=== PATIENT | male | born 1950 | race Caucasian/White ===

== ENCOUNTER → 2019-10-15 07:59 | Outpatient (CLI) | payer MEDICARE, SELFPAY ==
--- NOTE | 2019-10-15 08:25 | RAD_ITS ---
STUDY: X-RAY - ESOPHAGUS (BARIUM SWALLOW) WITH FLUOROSCOPY REASON FOR EXAM: Male, 69 years old. CHOKING ON SOLID FOOD 4X IN 3 YEARS TECHNIQUE: 17 view(s) of the esophagus were obtained following swallowing of barium. FLUOROSCOPY TIME (if supplied): (0:33) minutes/seconds COMPARISON: None. FINDINGS: There is no demonstrated esophageal foreign body. There is no demonstrated stricture or mucosal abnormality. Normal gastroesophageal junction, without a demonstrated hiatal hernia. The patient ingested a 12 mm tablet of barium without any difficulty. There is atherosclerotic calcification of the aortic arch with tortuosity of the descending aorta. Normal visualized pulmonary parenchyma. There are diffuse degenerative changes of the visualized thoracic spine. RAD/Esophagus Single Contrast IMPRESSION: Normal plain film x-ray examination (barium swallow) of the esophagus. Electronically Signed: Ant Toscano, at 14:09 EDT , Service support ,
== END ==
PROVIDERS: PCP Student in an Organized Health Care Education/Training Program; Referring Provider Student in an Organized Health Care Education/Training Program; Visit Provider Student in an Organized Health Care Education/Training Program
DX: R13.10 Dysphagia, unspecified (principal)
CPT/HCPCS: 74220

== ENCOUNTER 2021-01-14 06:25 | Day surgery (SDC) | payer MEDICARE, SELFPAY ==
--- NOTE | 2021-01-12 15:20 | HP.PCM_ITS ---
History and Physical Date of Admission: 01/14/21 HISTORY AND PHYSICAL ? Tom Mathews 1950 ? REFERRING PHYSICIAN: Nate Kenny IV, MD ? CHIEF COMPLAINT: Consult ? HPI: The patient is a 70 year old male referred for endoscopy. Tom reports a history of diarrhea x several years, worsening over the last couple of months. He states he will have loose stools within a short time of eating anything, even toast. Notes associated cramping and a 10 lb unintentional weight loss over the last few months. He is s/p cholecystectomy and appendectomy. He has tried a probiotic without symptom improvement. Patient denies any change weight changes, blood in stools, black tarry stools or abdominal pain. Denies family history of colon issues, but does note his brother had pancreatic cancer. The patient notes no upper GI complaints. ? Tom has undergone prior endoscopy, he believes this was at least 10 years a go. Records obtained show colonoscopy performed at [facility] 03/01/[address] Pickett with findings of moderate diverticulosis. ? Patient's past medical history is significant for chronic kidney disease, hypertension, hyperlipidemia, IBS, gout, diabetes mellitus. Patient notes he had a recent hospital visit at [facility] after he was found to have high potassium on routine labs. He states he has had nephrology follow-up and repeat labs since that time. Office notes from Dr. Kenny are reviewed. ? Denies chest pain or shortness of breath. Denies problems with sedation in the past. ? ? PAST MEDICAL HISTORY PAST MEDICAL HISTORY Diagnosis Date ? CKD (chronic kidney disease) stage 3, GFR 30-59 ml/min ([facility]) ? ? Diabetes mellitus (HCC) ? ? GERD (gastroesophageal reflux disease) ? ? Glaucoma ? ? Gout ? ? High triglycerides ? ? HLD (hyperlipidemia) ? ? HTN (hypertension) ? ? Hypothyroid ? ? IBS (irritable bowel syndrome) ? ? Memory change ? ? ? PAST SURGICAL HISTORY PAST SURGICAL HISTORY Procedure Laterality Date ? APPENDECTOMY HX ? 10/30/2018 ? CHOLECYSTECTOMY ? ? ? HERNIA REPAIR HX ? 07/03/2020 ? Umbilical ? KNEE LEFT OP SURGERY ? ? ? both knees ? SHOULDER SURGERY HX ? CURRENT MEDICATIONS Current Outpatient Medications Medication Sig ? pioglitazone (ACTOS) 45 mg tablet Take 45 mg by mouth once daily. ? glimepiride (AMARYL ORAL) Take 10 mg by mouth as needed. ? chlorthalidone (HYGROTON) 25 mg tablet Take 25 mg by mouth once daily. ? levothyroxine (SYNTHROID) 88 mcg tablet Take 88 mcg by mouth daily before breakfast. ? desloratadine (CLARINEX) 5 mg tablet Take 5 mg by mouth once daily. ? doxazosin (CARDURA) 2 mg tablet Take 2 mg by mouth daily at bedtime. ? pantoprazole DR (PROTONIX) 40 mg tablet Take 40 mg by mouth once daily. ? ergocalciferol 50,000 unit capsule (VITAMIN D2, DRISDOL) Take 50,000 Units by mouth one time a week. ? ezetimibe (ZETIA) 10 mg tablet Take 10 mg by mouth once daily. ? aspirin, enteric coated (ASPIRIN, ENTERIC COATED) 81 mg EC tablet Take 81 mg by mouth once daily. ? cholecalciferol, vitamin D3, (VITAMIN D3 ORAL) Take 5,000 Units by mouth once daily. ? Ascorbic Acid-Collagen (COLLAGEN PLUS VITAMIN C) 125-740 mg cap Take by mouth once daily. ? ferrous sulfate EC 324 mg (65 mg iron) TbEC Take 324 mg by mouth daily with breakfast. ? calcium carb/mag oxide/C/beta (CALCIUM COMPLETE ORAL) Take 1,300 mg by mouth once daily. ? ubidecarenone (COENZYME Q10) 100 mg tab Take 200 mg by mouth once daily. ? MAGNESIUM GLYCINATE ORAL Take 665 mg by mouth once daily. ? icosapent ethyl (VASCEPA) capsule Take 2 g by mouth four times daily. ? evolocumab (REPATHA SYRINGE) 140 mg/mL Inject subcutaneously every 2 weeks. ? insulin NPH human isophane (NOVOLIN N SUBCUTANEOUS) Inject 42 Units subcutaneously once daily. NOVOLIN 12 units at lunch 42 units at dinner ? insulin glargine,hum.rec.anlog (TOUO SOLOSTAR U-300 INSULIN SUBCUTANEOUS) Inject 44 Units subcutaneously once daily. ? escitalopram oxalate (LEXAPRO) 10 mg tablet Take 10 mg by mouth once daily. ? allopurinol 100 mg tablet Take 200 mg by mouth once daily. ? bisoprolol (ZEBETA) 10 mg tablet Take 10 mg by mouth once daily. ? latanaprost (XALATAN) 0.005 % ophthalmic solution Use 1 Drop in both eyes daily at bedtime. ? Insulin [place], Disposable, (BD ULTRAFINE III MINI PEN) 31 x 3/16 Ndle USE WITH INSULIN PENS PENS 1TIMES DAILY ? Valsartan-Hydrochlorothiazide (DIOVAN HCT) 320-12.5 mg per tablet Take 1 tablet by mouth once daily. (Patient not taking: Reported on 12/02/2020 ) ? hydrochlorothiazide 25 mg tablet Take 25 mg by mouth once daily. (Patient not taking: Reported on 12/02/2020 ) ? Omeprazole (PRILOSEC) 40 mg capsule Take 40 mg by mouth once daily. (Patient not taking: Reported on 12/02/2020 ) ? fenofibrate nanocrystallized (TRICOR) 145 mg tablet Take 145 mg by mouth once daily. (Patient not taking: Reported on 12/02/2020 ) ? glipiZIDE 5 mg tablet Take 5 mg by mouth once daily. Takes 20 mg daily. (Patient not taking: Reported on 12/02/2020 ) ? omega-3 acid ethyl esters (LOVAZA) 1 gram capsule Take 1 g by mouth once daily. (Patient not taking: Reported on 12/02/2020 ) ? CIPROFLOXACIN HCL (CIPRO ORAL) Take by mouth twice daily. (Patient not taking: Reported on 12/02/2020 ) ? rosuvastatin (CRESTOR) 5 mg tablet Take 1 tablet by mouth daily at bedtime. (Patient not taking: Reported on 12/02/2020 ) ? insulin glargine (LANTUS SOLOSTAR) 100 unit/mL (3 mL) InPn Inject 10 Units subcutaneously daily at bedtime. (Patient not taking: Reported on 12/02/2020 ) ? No current facility-administered medications for this visit. ? ? ALLERGIES: Hydrocodone-Acetaminophen, Percocet [Oxycodone-Acetaminophen], and Utfdsfm-Lhz-Jfw Reductase Inhibitors ? PERSONAL HISTORY: SOCIAL HISTORY Social History ? Tobacco Use ? Smoking status: Former Smoker ? ? Types: Pipe, Cigars ? Smokeless tobacco: Never Used ? Tobacco comment: Quit 1979 Substance Use Topics ? Alcohol use: Not Currently ? Drug use: Never ? FAMILY HISTORY: FAMILY HISTORY FAMILY HISTORY Problem Relation Age of Onset ? Breast Cancer Mother ? ? ? Stroke Father ? ? at age 76 ? other (aortic aneurysm) Sister ? ? Prostate Cancer Brother ? ? other (pancreatic cancer) Brother ? ? Prostate Cancer Brother ? ? alzheimers ? ? REVIEW OF SYMPTOMS: The review of systems data was entered by the nurse and reviewed by me ? Nursing Notes: Gail Cheema RN 12/02/2020 10:06 AM Signed REVIEW OF SYSTEMS: General: The patient denies fatigue, denies weight loss, denies weight gain, denies feeling hot, and denies feelings of cold. Eyes: The patient notes glaucoma, denies eye injury/surgery, does not wear glasses or contacts. Ear/Nose/Throat: The patient notes allergies, denies hayfever, denies ear infections, and denies bloody noses. Cardiovascular: The patient denies chest pain, denies heart disease, notes high blood pressure,denies cardiac stent, denies prior heart attack, notes irregular heart beat, notes high cholesterol, denies poor circulation, denies heart failure, other cardiac issues, denies claudication, denies cold feet, denies peripheral arterial stent. Respiratory: The patient denies tuberculosis, denies pneumonia, denies frequent cough, denies pulmonary embolism, denies shortness of breath, and denies coughing up blood. Gastrointestinal: The patient denies difficulty swallowing, notes acid reflux, denies ulcers, denies vomiting, denies jaundice/hepatitis, denies gallb ladder problems, denies black or tarry stools, notes hemorrhoids, denies bleeding from rectum, denies diverticulitis, denies constipation, notes diarrhea, denies loss of stool control, and denies hernias. Kidney/Bladder: The patient denies kidney stones, denies urine infections, and denies bloody urine. Skin: The patient denies a history of skin cancer, denies bleeding/changing moles, and denies a history of skin rash. Neurologic: The patient denies a history of epilepsy/convulsions, denies headaches, denies head/spinal injuries, and denies stroke/TIA. Psychiatric: The patient denies psychiatric medications, notes depression, and denies voices, denies substance abuse. Endocrine: The patient notes thyroid disorders, notes diabetes, and denies hormonal problems. Hematologic: The patient denies a history of bruising, denies bleeding, and denies anemia, denies blood clots. Infections: The patient denies a history of measles and mumps, denies rheumatic fever, and denies sexually transmitted diseases. Musculoskeletal: The patient denies back pain/injury, notes back problems, denies sciatica, denies knee/foot trouble, notes arthritis, or notes gout. ? ? When was patient's last Mammogram screening? N/A ? Last Colonoscopy: 2009? ? Gail Cheema RN I have confirmed and edited as necessary, the PFSH and ROS obtained by others. ? PHYSICAL EXAMINATION: ? General: The patient is 70 year old male, well nourished, well hydrated in no acute distress. The patient is oriented to time, place, and person. ? VITALS: Blood pressure 150/64, pulse (!) 52, temperature 36 ?C (96.8 ?F), temperature source Temporal Artery, weight 111.6 kg (246 lb), SpO2 97 %. Body mass index is 35.74 kg/m?. ? HEENT: Normal cephalic, ataumatic, pupils are equally round, sclera are anicteric, mucous membranes are moist, oropharynx is clear. Neck has no masses, asymmetry or lymphadenopathy. ? Respiratory: Clear to auscultation and percussion. Normal respiratory excursion and pattern. ? Cardiac: Examination is regular rate and rhythm. Normal S1/S2 ? Abdominal exam: Soft, nontender, with no palpable masses. No hepatospl enomegaly. No palpable hernias. ? Extremities: no clubbing, cyanosis or edema. No adenopathy. ? LABORATORY VALUES: As Noted ? RADIOLOGIC STUDIES: As Noted ? ? Assessment IMPRESSION: diarrhea, change in bowel habits. Chronic kidney disease and history of recent hospital visit for abnormal labs-recommend Monitored Anesthetic Care ? PLAN: I have reviewed my findings with the surgeon. Will plan for lower endoscopy-patient was offered EGD at same setting but declined. We discussed the risks and benefits of the planned endoscopy. I have informed the patient that complications can occur including failure to complete the endoscopy and perforation. The patient had the opportunity to ask questions concerning the planned endoscopy. My staff has also explained the procedure to the patient in understandable terms and has given the patient printed material concerning the procedure. The patient freely consents to surgery. ? The patient was offered a surgery/procedure at a [facility]. I have counseled the patient regarding the risk of exposure to and/or potential harm posed by the COVID-19 virus with having a surgery/procedure at this time versus the risk of? delaying the surgery/procedure. It is not possible to know either the risk of delaying the surgery or procedure or chance of getting an infection with perfect accuracy, but a joint decision was made between the patient and myself?to proceed at this time with endoscopy. ? I plan to use Miralax/dulcolax bowel preparation. Reviewed importance of good hydration prior to, during and following bowel prep ? Patient instructed to contact PCP for instructions regarding diabetic medication, which may require adjustment during bowel preparation and/or day of procedure ? ? The patient has medical comorbidities for which we will plan for the procedure to be performed under Monitored Anesthetic Care. ? ? ? Diagnoses: (R19.7) Diarrhea, unspecified type (primary encounter diagnosis) (R19.4) Change in bowel habits (R10.9) Abdominal cramping ? Jacinda Powers PA-C v
[2021-01-14] VITALS (7 sets, daily range): BP systolic 116–141; BP diastolic 55–67; PULSE 46–55; RESP 16–18; TEMP 36.1–36.2; O2SAT 95–99; BMI 43.7
[2021-01-14] MEDS: Lactated Ringers 1,000 ML 125 ML IV (06:56)
[2021-01-14 07:20] LABS: Bedside Glucose 97 mg/dL (70-110)
--- NOTE | 2021-01-14 07:30 | COLBX_PTH ---
PATIENT: RAMIRO CHAUDHARY LOC: EN U#:[id number] AGE/SX: 70/M ROOM: RE01/14/[address]: Dr. Em Doherty MD : 1950 BED: DIS: 01/14/2021 SPEC #: [id number] RECD: 01/14/21 09:41 STATUS: SAUL REJo Ann #: [id number] MARIAH: 01/14/21 07:[address]: Em Doherty DEPT: SURGICAL PATHOLOGY RECD BY: Aisha Guidry ENTERED: 01/14/21 10:46 SP TYPE: COLON BX MEENAKSHI DR: Dr. Nate Kenny DO Tissues: COLON BIOPSY Procedures: Trichrome (control) Special Stain Group II Surgery Specimen Level IV HEADER OPERATION: Colonoscopy (MAC) PRE-OP DIAGNOSIS: Diarrhea, change in bowel habits TISSUE SUBMITTED: Random colonic biopsy MICROSCOPIC DIAGNOSIS Colon, random biopsy: Consistent with collagenous colitis. See comment. AM:shavon 01/15/2021 COMMENT Trichrome stain with matched control was used in the evaluation of this case. MICROSCOPIC DESCRIPTION Slides are reviewed. GROSS DESCRIPTION Received in fixative is one container labeled with the patient's name and designated random colon biopsy. The specimen consists of multiple irregular fragments of light garcia soft tissue that in aggregate measure 1.5 x 0.6 x 0.1 cm. The specimen is totally submitted in one cassette. / SJ:shavon 01/14/21 TC:3 CPT: 87546, 32813
--- NOTE | 2021-01-14 12:55 | OP.COLON_ITS ---
Patient Name: Tom Mathews Procedure Date: 01/14/2021 7:03 AM Date of : 1950 Age: 70 Procedure: Colonoscopy Indications: Change in bowel habits, Clinically significant diarrhea of unexplained origin Providers: Em Doherty MD Medicines: See the Anesthesia note for documentation of the administered medications Patient Profile: Refer to note in patient chart for documentation of history and physical. Last Colonoscopy: more than 10 years ago. Complications: No immediate complications. Estimated blood loss: Minimal. Procedure: Pre-Anesthesia Assessment: - see anesthesia note After I obtained informed consent, the scope was passed under direct vision. Throughout the procedure, the patient's blood pressure, pulse, and oxygen saturations were monitored continuously. The pediatric colonoscope was introduced through the anus and advanced to the cecum, identified by the appendiceal orifice, IC valve and transillumination. The colonoscopy was performed without difficulty. The patient tolerated the procedure well. The quality of the bowel preparation was adequate. Scope In: 7:32:45 AM Scope Withdrawal Time 0 hours 8 minutes 9 seconds Scope Out: 7:52:39 AM Total Procedure Duration Time 0 hours 19 minutes 54 seconds Findings: The perianal and digital rectal examinations were normal. A few small and large-mouthed diverticula were found in the entire colon. Biopsies for histology were taken with a cold forceps from the entire colon for evaluation of microscopic colitis. Non-bleeding internal external and internal hemorrhoids were found. Impression: - Diverticulosis in the entire examined colon. - Non-bleeding internal external and internal hemorrhoids. - Biopsies were taken with a cold forceps from the entire colon for evaluation of microscopic colitis. Recommendation: - Repeat colonoscopy is not recommended due to current age (66 years or older). - Follow up visit via telemedicine with Jacinda Powers PA-C to discuss results. Call to set this up, thank you - Continue present medications. Procedure Code(s): --- Professional --- 26010, Colonoscopy, flexible; with biopsy, single or multiple Diagnosis Code(s): --- Professional --- K64.8, Other hemorrhoids R19.4, Change in bowel habit R19.7, Diarrhea, unspecified K57.30, Diverticulosis of large intestine without perforation or abscess without bleeding CPT copyright 2017 [employer]. All rights reserved. The codes documented in this report are preliminary and upon information coder review may be revised to meet current compliance requirements. MD Em Carrillo MD 01/14/2021 7:59:24 AM This report has been signed electronically. Number of Addenda: 0 Note Initiated On: 01/14/2021 7:03 AM
--- NOTE | 2021-01-14 12:55 | OP.CCLET_ITS ---
01/14/2021 Nate Kenny Do Re : Colonoscopy procedure for Tom Mathews Dear Efraín This procedure was performed on Thursday, January 14, 2021. My impressions and recommendations are as follows: Impressions : - Diverticulosis in the entire examined colon. - Non-bleeding internal external and internal hemorrhoids. - Biopsies were taken with a cold forceps from the entire colon for evaluation of microscopic colitis. Recommendations : - Repeat colonoscopy is not recommended due to current age (66 years or older). - Follow up visit via telemedicine with Jacinda Powers PA-C to discuss results. Call to set this up, thank you - Continue present medications. My findings are described in the full procedure note, which is enclosed. If I can be of further assistance, please feel free to contact me at Doctor phone number(s): , Work: . Sincerely, MD Em Carrillo MD 01/14/2021 7:59:24 AM This report has been signed electronically.
== END 2021-01-14 08:50 ==
LOC: EN 06:26 → AC 06:28
PROVIDERS: PCP Student in an Organized Health Care Education/Training Program; Referring Provider Student in an Organized Health Care Education/Training Program; Visit Provider Surgery
PROC: 0DJD8ZZ Inspection of Lower Intestinal Tract, Via Natural or Artificial Opening Endoscopic (ICD-10-PCS; CPT 45378; principal; 2021-01-14 07:25)
DX: K64.8 Other hemorrhoids (principal); K64.4 Residual hemorrhoidal skin tags; K57.30 Diverticulosis of large intestine without perforation or abscess without bleeding; K58.9 Irritable bowel syndrome, unspecified; M10.9 Gout, unspecified; E03.9 Hypothyroidism, unspecified; E11.22 Type 2 diabetes mellitus with diabetic chronic kidney disease; I12.9 Hypertensive chronic kidney disease with stage 1 through stage 4 chronic kidney disease, or unspecified chronic kidney disease; M19.90 Unspecified osteoarthritis, unspecified site; F32.9 Major depressive disorder, single episode, unspecified; E78.5 Hyperlipidemia, unspecified; H40.9 Unspecified glaucoma; K21.9 Gastro-esophageal reflux disease without esophagitis; N18.30 Chronic kidney disease, stage 3 unspecified; E78.00 Pure hypercholesterolemia, unspecified; G47.30 Sleep apnea, unspecified; G43.909 Migraine, unspecified, not intractable, without status migrainosus; Z86.2 Personal history of diseases of the blood and blood-forming organs and certain disorders involving the immune mechanism; Z87.448 Personal history of other diseases of urinary system; Z79.4 Long term (current) use of insulin; Z79.82 Long term (current) use of aspirin; Z79.899 Other long term (current) drug therapy; Z87.891 Personal history of nicotine dependence
CPT/HCPCS: 45380; 82962; 88305; 88313; J7120; J2405